=== PATIENT | female | born 2000 | race Caucasian/White ===

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

== ENCOUNTER 2020-01-06 19:02 | Emergency (ER) | payer MEDICAID ==
[~2020-01-06] VITALS: Ht 170.2 cm; Wt 63.6 kg
--- NOTE | 2020-01-06 21:14 | NUR ---
REPORT RECEIVED FROM VIANEY MORRIS. PT TO MRI AT THIS TIME
[2020-01-06] MEDS ORDERED: GADOTERATE 7.5 MMOL/15 ML SYR ONE (21:18)
[2020-01-06 21:53] VITALS: BP 110/69
--- NOTE | 2020-01-06 21:53 | NUR ---
PT BACK FROM MRI. GONZALES. RODERICK
--- NOTE | 2020-01-06 22:01 | NUR ---
REPORT FROM KAYLEEN WINTERS. PT RESTING WITH NO NEEDS AT THIS TIME,CALL LIGHT IN REACH
--- NOTE | 2020-01-06 23:10 | NUR ---
Patient given discharge instructions and they have confirmed that they understand the instructions. Patient ambulatory with steady gait.
== END 2020-01-06 23:11 | disposition home or self-care (01) ==
LOC: ED 22:01
DX: M54.32 Sciatica, left side (principal); M54.5 Low back pain; R20.8 Other disturbances of skin sensation
CPT/HCPCS: 72158; 99285; A9575